=== PATIENT | male | born 1955 | race Caucasian/White ===

== ENCOUNTER 2019-06-09 18:56 | Emergency (ER) | payer SELFPAY ==
[~2019-06-09] VITALS: Ht 177.8 cm; Wt 113.0 kg
[2019-06-09] MEDS ORDERED: BACITRACIN ZINC OINT UDPKT TOP ONE (19:30)
[2019-06-09] MEDS ORDERED: LIDOCAINE HCL/PF 1% 10 MG/ML 5ML VIAL IJ ONE (19:30)
[2019-06-09] MEDS ORDERED: TETANUS, DIPHTHERIA, PERTUSSIS VAC/PF 0.5ML (>7YR OLD) IM ONE (19:30)
[2019-06-10 06:21] VITALS: BP 127/88
== END 2019-06-10 06:22 | disposition home or self-care (01) ==
LOC: ER 18:56
DX: S01.81XA Laceration without foreign body of other part of head, initial encounter (principal); F10.129 Alcohol abuse with intoxication, unspecified; Y90.8 Blood alcohol level of 240 mg/100 ml or more; W01.0XXA Fall on same level from slipping, tripping and stumbling without subsequent striking against object, initial encounter; Y93.89 Activity, other specified; Y92.89 Other specified places as the place of occurrence of the external cause; Y99.8 Other external cause status
CPT/HCPCS: 12013; 36415; 70450; 70486; 71045; 80320; 90471; 90715; 93005; 99285; J3490; G0480